=== PATIENT | male | born 1975 | race Caucasian/White ===

== ENCOUNTER 2017-05-06 10:36 | Day surgery (SDC) | payer BC ==
[2017-05-05 12:02] VITALS: BMI 25.8
[~2017-05-06 10:36] MED LIST: DEXAMETHASONE SOD PHOSPHATE 10 MG/ML 1 ML VIAL IV ONE; HYDROmorphone 1 MG/ML 1 ML SYRINGE IVP PRN; LACTATED RINGERS 1,000 ML IV ONE; MIDAZOLAM 2 MG/2 ML VIAL IV PRN; ONDANSETRON 4 MG/2 ML VIAL IVP ONE; SCOPOLAMINE 1.5MG/72HR PATCH TRANSDERM ONE; ceFAZolin 1,000 MG in DEXTROSE/WATER 1 50ML.BAG IVPB ONE
[2017-05-06] MEDS ORDERED: LIDOCAINE 1% 20 ML VIAL (10MG/ML) FOR IV START INTRADERMA ONE (10:41)
--- NOTE | 2017-05-06 10:53 | XR ---
EXAMINATION TYPE: XR KUB DATE OF EXAM: 05/06/2017 CLINICAL DATA: 41 year-old male right ureteral calculus, surgery, [facility] COMPARISON: None FINDINGS: Nonobstructive bowel gas pattern. Mild scattered stool. A couple punctate 2 mm calculi are present in the left mid abdomen. Bowel content partially obscures the right renal shadow. There is an elongated 7 x 3 mm calcification in the right hemipelvis. Additional pelvic phleboliths on both sides. 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 IMPRESSION: 1. Punctate 2 mm left renal calculi. 2. An elongated 7 x 3 mm calcification in the right hemipelvis could represent a phlebolith or distal ureteral calculus. Clinically correlate.
[2017-05-06 11:46] LABS: Anisocytosis Slight; Basophils # (A) 0.1 k/uL (0-0.2); Basophils % (A) 1 %; CH 24.1; CHCM 30.8; Eosinophils # (A) 0.3 k/uL (0-0.7); Eosinophils % (A) 4 %; HCT 35.6 % (39.0-53.0); HDW 2.94; HGB 11.6 gm/dL (13.0-17.5); Hypochromasia Moderate; Luc # (Auto) 0.15; Luc % (Auto) 2; Lymphocytes % (A) 28 %; MCH 25.8 pg (25.0-35.0); MCHC 32.7 g/dL (31.0-37.0); MCV 78.9 fL (80.0-100.0); Mean Platelet Volume 8.2; Microcytosis Slight; Monocytes # (A) 0.5 k/uL (0-1.0); Monocytes % (A) 7 %; Neutrophils % (A) 57 %; RBC 4.51 m/uL (4.30-5.90); RDW 19.6 % (11.5-15.5); WBC (Perox) 7.26
[2017-05-06 11:47] LABS: ALT 27 U/L (21-72); AST 20 U/L (17-59); Alkaline Phosphatase 70 U/L (38-126); Anion Gap 10 mmol/L; Blood Urea Nitrogen 21 mg/dL (9-20); Calcium 9.5 mg/dL (8.4-10.2); Carbon Dioxide 24 mmol/L (22-30); Chloride 109 mmol/L (98-107); Glucose 92 mg/dL (74-99); Non-African American GFR(MDRD) >60 (>60 ml/min/1.73 sqM); Potassium 4.7 mmol/L (3.5-5.1); Sodium 143 mmol/L (137-145); Total Bilirubin 0.3 mg/dL (0.2-1.3); Total Protein 6.9 g/dL (6.3-8.2)
[2017-05-06] MEDS ORDERED: LIDOCAINE 1% INJ 10MG/ML (20 ML MDV) ONE (11:53)
[2017-05-06] MEDS ORDERED: PROPOFOL 10 MG/ML 20 ML VIAL IV ONE (11:53)
[2017-05-06] MEDS ORDERED: fentaNYL (PF) 50 MCG/ML 2 ML AMP ONE (11:53)
[2017-05-06] MEDS ORDERED: MIDAZOLAM 2 MG/2 ML VIAL ONE (11:53)
--- NOTE | 2017-05-06 12:37 | P.OP ---
Date of Procedure: 05/06/17 Preoperative Diagnosis: Right ureteral calculus Postoperative Diagnosis: Same Procedure(s) Performed: Cystoscopy, right ureteroscopy with laser lithotripsy Implants: Anesthesia: ROGERA Surgeon: Leonard Murry Estimated Blood Loss (ml): 5 Pathology: other (Stone) Condition: stable Disposition: PACU Indications for Procedure: The patient is a 41-year-old gentleman with a 7 mm distal ureteral stone that is had for 1 week. He is going out of town and would like the stone removed surgeon to deal with the pain and/or obstruction when in [place]. Operative Findings: Description of Procedure: The patient is brought to the operating suite and given a successful general endotracheal anesthesia. He's placed lithotomy position with sterile prep and drape. Cystoscopy Foroblique lens and 22-Kiswahili sheath identifies normal urethra. The prostate is not obstructing. The bladder mucosa is unremarkable. Both ureteral orifices are normal. An 8 cone-tip catheters used to calibrate the right distal ureter and passed up to what is thought to be the stone on KUB and indeed it is. I then easily pass a 7-Kiswahili mini semirigid ureteroscope up to the stone. With the 365 laser probe and throughout of energy the stone was broken into tiny pieces and flushed out of the ureter. I do not think there is enough edema to necessitate a stent therefore the ureteroscope was removed. The cystoscope was reintroduced into the bladder. The stones irrigated out. The patient's awake and returned recovery in good condition. He tolerated procedure well be discharged home upon recovery.
[2017-05-06 12:43] VITALS: TEMP 97.8
[2017-05-06 13:04] VITALS: RESP 16
--- NOTE | 2017-05-06 13:07 | FL ---
EXAMINATION TYPE: FL guidance operating room DATE OF EXAM: 05/06/2017 FLUOROSCOPY Fluoroscopy time of 4 seconds was used during right ureteral stone intervention. 1 image/s document/ s the procedure.
[2017-05-06 13:41] LABS: Manual Review Performed
[2017-05-06 13:57] VITALS: BP 121/77; PULSE 56
== END 2017-05-06 14:22 | disposition home or self-care (01) ==
LOC: OR 10:36
PROVIDERS: ATTEND Urology
DX: N20.1 Calculus of ureter (principal); F98.8 Other specified behavioral and emotional disorders with onset usually occurring in childhood and adolescence; Z79.899 Other long term (current) drug therapy; F17.200 Nicotine dependence, unspecified, uncomplicated
CPT/HCPCS: 80053; 85025; 82365; 74000; 52353; C1758; C1769; C1894; J2250; J1100; J2405; J2001; J3010; J0690; J2704

== ENCOUNTER 2020-07-31 09:43 | Day surgery (SDC) | payer BC ==
[2020-07-29 13:07] VITALS: BMI 25.8
[~2020-07-31 09:43] MED LIST changes: -DEXAMETHASONE SOD PHOSPHATE 10 MG/ML 1 ML VIAL IV ONE; -HYDROmorphone 1 MG/ML 1 ML SYRINGE IVP PRN; -LACTATED RINGERS 1,000 ML IV ONE; +LACTATED RINGERS 1,000 ML IV SCH; +LIDOCAINE 1% (10MG/ML) FOR IV START INTRADERMA PRN; -MIDAZOLAM 2 MG/2 ML VIAL IV PRN; -ONDANSETRON 4 MG/2 ML VIAL IVP ONE; -SCOPOLAMINE 1.5MG/72HR PATCH TRANSDERM ONE; -ceFAZolin 1,000 MG in DEXTROSE/WATER 1 50ML.BAG IVPB ONE
[2020-07-31 10:22] VITALS: TEMP 98.3
[2020-07-31] MEDS ORDERED: PROPOFOL 10 MG/ML 20 ML VIAL IV ONE (10:39)
--- NOTE | 2020-07-31 10:40 | P.GSHP ---
History of Present Illness H&P Date: 07/31/20 Chief Complaint: Rectal bleeding Is a 41-year-old male presents today for colonoscopy. He's had issues with rectal bleeding. He is known internal and external hemorrhoids Past Medical History Additional Past Medical History / Comment(s): HX KIDNEY STONES; RT URETERL STONE. History of Any Multi-Drug Resistant Organisms: None Reported Past Surgical History: Adenoidectomy, Hernia Repair, Tonsillectomy Additional Past Surgical History / Comment(s): RT ING HERNIA REPAIR. URETRAL STONE SURGERY Past Anesthesia/Blood Transfusion Reactions: Postoperative Nausea & Vomiting (PONV) Smoking Status: Current every day smoker - Past Family History Mother Family Medical History: No Reported History Medications and Allergies Home Medications Medication Instructions Recorded Confirmed Type Dextroamphetamine/Amphetamine 20 mg PO DAILY PRN 05/05/17 07/31/20 History [Adderall] Allergies Allergy/AdvReac Type Severity Reaction Status Date / Time No Known Allergies Allergy Verified 07/31/20 10:23 Surgical - Exam Vital Signs Temp Pulse Resp BP Pulse Ox 98.3 F 78 16 119/76 97 07/31/20 10:16 07/31/20 10:16 07/31/20 10:16 07/31/20 10:16 07/31/20 10:16 - General well developed, well nourished, no distress - Eyes PERRL - ENT normal pinna - Neck no masses - Respiratory normal expansion - Cardiovascular Rhythm: regular - Abdomen Abdomen: soft, non tender Assessment and Plan Assessment: Rectal bleeding Introduction hemorrhoids We'll perform colonoscopy.
--- NOTE | 2020-07-31 10:51 | P.OP ---
Date of Procedure: 07/31/20 Preoperative Diagnosis: Rectal bleeding Postoperative Diagnosis: Internal and external hemorrhoids Procedure(s) Performed: Colonoscopy Anesthesia: MAC Surgeon: Mark Boo Pathology: none sent Condition: stable Disposition: PACU Description of Procedure: The patient's placed on the endoscopy table in the lateral position. He received IV sedation. Digital rectal exam was performed which revealed internal/external hemorrhoids. The flexible colonoscope was then placed patient anus passed throughout the entire colon. The ileocecal valve was visualized. The cecum, ascending and transverse colon appeared normal. The descending and; appeared normal. Scope was then brought back the rectum and then withdrawn through the anus and internal and external hemorrhoids were noted again. There is no evidence of any rectal bleeding. It is presumed this. Rectal bleeding is due to internal and external hemorrhoids.
[2020-07-31 11:30] VITALS: BP 107/71; PULSE 65; RESP 18
== END 2020-07-31 11:45 | disposition home or self-care (01) ==
LOC: ORWHC2ENDO 09:43
PROVIDERS: ATTEND Surgery
DX: K64.8 Other hemorrhoids (principal); K64.4 Residual hemorrhoidal skin tags; F17.210 Nicotine dependence, cigarettes, uncomplicated; Z87.442 Personal history of urinary calculi; Z98.890 Other specified postprocedural states
CPT/HCPCS: 45378; J2704

== ENCOUNTER 2020-12-23 06:30 | Day surgery (SDC) | payer BC, OTHER ==
[2020-12-19 18:16] VITALS: BMI 25.8
[~2020-12-23 06:30] MED LIST changes: +ACETAMINOPHEN TAB 500 MG TAB PO PRN; +DEXAMETHASONE SOD PHOSPHATE 4 MG/ML 1 ML VIAL IV ONE; +HEPARIN SODIUM,PORCINE 5,000 UNIT/ML 1 ML VIAL SQ PRN; +ONDANSETRON 4 MG/2 ML VIAL IVP ONE; +Pre Op ABX Message 1 EACH MISC MISCELLANE ONE
[2020-12-23 06:56] VITALS: RESP 16
[2020-12-23] MEDS ORDERED: BUPIVACAINE-EPI 0.5%-1:200,000 10 ML VIAL SQ ONE ×2 (08:03)
[2020-12-23] MEDS ORDERED: SUCCINYLCHOLINE CHLORIDE 100 MG/5 ML SYR IV ONE (08:08)
[2020-12-23] MEDS ORDERED: LIDOCAINE 1% INJ 10MG/ML (20 ML MDV) ONE (08:08)
[2020-12-23] MEDS ORDERED: MIDAZOLAM 2 MG/2 ML VIAL ONE (08:08)
[2020-12-23] MEDS ORDERED: fentaNYL (PF) 50 MCG/ML 2 ML AMP ONE (08:08)
[2020-12-23] MEDS ORDERED: PROPOFOL 10 MG/ML 20 ML VIAL IV ONE (08:08)
[2020-12-23] MEDS ORDERED: SODIUM CHLORIDE 0.9% 50 ML with ceFAZolin 2,000 MG IV ONE ×2 (08:30)
--- NOTE | 2020-12-23 09:00 | P.GSHP ---
History of Present Illness H&P Date: 12/23/20 Chief Complaint: Internal and external hemorrhoids Is a 45 male who presents today for hemorrhoidectomy. He's had trouble with internal and external hemorrhoids. Patient's had pain and bleeding and itching. Past Medical History Additional Past Medical History / Comment(s): Hx kidney stones, RT ureteral stone. Hemorrhoids, int & ext History of Any Multi-Drug Resistant Organisms: None Reported Past Surgical History: Adenoidectomy, Hernia Repair, Tonsillectomy Additional Past Surgical History / Comment(s): RT ING HERNIA REPAIR. URETRAL STONE SURGERY. Colonoscopy Past Anesthesia/Blood Transfusion Reactions: Postoperative Nausea & Vomiting (PONV) Smoking Status: Current every day smoker - Past Family History Mother Family Medical History: No Reported History Medications and Allergies Home Medications Medication Instructions Recorded Confirmed Type No Known Home Medications 12/19/20 12/23/20 History Allergies Allergy/AdvReac Type Severity Reaction Status Date / Time No Known Allergies Allergy Verified 12/23/20 06:45 Surgical - Exam Vital Signs Temp Pulse Resp BP Pulse Ox 97.9 F 72 16 115/64 96 12/23/20 06:45 12/23/20 06:45 12/23/20 06:45 12/23/20 06:45 12/23/20 06:45 - General well developed, well nourished, no distress - Eyes PERRL - ENT normal pinna - Neck no masses - Respiratory normal expansion - Cardiovascular Rhythm: regular - Abdomen Abdomen: soft, non tender - Rectum Hemorrhoids: large Assessment and Plan Assessment: Internal and external hemorrhoids. We'll perform hemorrhoidectomy.
[2020-12-23 09:02] VITALS: TEMP 97.2
--- NOTE | 2020-12-23 09:04 | P.OP ---
Date of Procedure: 12/23/20 Preoperative Diagnosis: Internal and external hemorrhoids Postoperative Diagnosis: Internal and external Hemorrhoids Procedure(s) Performed: Hemorrhoidectomy Anesthesia: LILIA Surgeon: Mark Boo Estimated Blood Loss (ml): 5 Pathology: other (Internal and external hemorrhoids) Condition: stable Description of Procedure: The patient's placed on the operative table in the prone position after receiving general anesthesia. His anus was prepped and draped usual sterile fashion. The anus was injected with 1% local Xylocaine. The antrum was placed anus. The patient had a large left lateral hemorrhoidal colon and a large right anterior and posterior hemorrhoidal column. The left lateral hemorrhoidal column was grasped. Allis clips and the Harmonic scissors the rectus performed. In identical fashion the right anterior and right posterior hemorrhoidectomy was performed. The Bovie hemostasis. There is no bleeding seen. The anus was packed with Gelfoam. Patient top she will was sent to recovery room stable condition.
[2020-12-23] MEDS: HYDROmorphone 0.5 MG/0.5 ML SYRINGE IVP ONE ×2 (09:15→09:20)
[2020-12-23] MEDS ORDERED: HYDROmorphone 0.5 MG/0.5 ML SYRINGE IVP ONE (09:36)
[2020-12-23 10:48] VITALS: BP 135/82; PULSE 69
== END 2020-12-23 11:09 | disposition home or self-care (01) ==
LOC: OR 06:30
PROVIDERS: ATTEND Surgery
DX: K64.8 Other hemorrhoids (principal); K64.4 Residual hemorrhoidal skin tags; Z87.442 Personal history of urinary calculi; Z90.89 Acquired absence of other organs; Z98.890 Other specified postprocedural states; F17.200 Nicotine dependence, unspecified, uncomplicated
CPT/HCPCS: 88304; 46255; J2250; J1644; J1100; J2405; J0690; J2001; J3010; J0330; J2704; J1170